=== PATIENT | male | born 1995 | race Caucasian/White ===

== ENCOUNTER 2017-04-15 13:06 | Emergency (ER) | payer OTHER ==
[~2017-04-15] VITALS: Ht 188 cm; Wt 68.0 kg
[2017-04-15 13:54] LABS: ABSOLUTE BASOPHIL COUNT 0 /CUMM (0.0-0.2); ABSOLUTE EOSINOPHIL COUNT 0.1 /CUMM (0.0-0.7); ABSOLUTE GRANULOCYTE CT 3.3 /CUMM (1.4-6.5); ABSOLUTE LYMPH COUNT 2.4 /CUMM (1.2-3.4); ABSOLUTE MONOCYTE COUNT 0.7 /CUMM (0.10-0.60); BASOPHIL % 0.7 % (0.0-2.0); EOSINOPHIL % 1.4 % (0-5); GRANULOCYTE % 50.4 % (42.2-75.2); HEMATOCRIT 46.2 % (42-52); MEAN CORPUSCULAR HGB 28.5 PG (27.0-31.0); MEAN CORPUSCULAR HGB CONC 33.1 G/DL (33.0-37.0); MEAN CORPUSCULAR VOLUME 86.1 FL (80.0-94.0); MEAN PLATELET VOLUME 7.1 FL (7.4-10.4); PLATELET COUNT 280 /CUMM (130-400); RED BLOOD CELL CT 5.36 /CUMM (4.70-6.10); WHITE BLOOD CELL COUNT 6.5 /CUMM (4.8-10.8)
--- NOTE | 2017-04-15 15:13 | ED GENERAL ADULT ---
See Addendum History of Present Illness General Chief Complaint: Nausea, Vomiting, Diarrhea Stated Complaint: N/V/D, ABDOMINAL PAIN X 4 DAYS Source: patient Exam Limitations: no limitations Vital Signs & Intake/Output Vital Signs & Intake/Output Vital Signs Date Time Temp Pulse Resp B/P B/P Pulse O2 O2 Flow FiO2 Mean Ox Delivery Rate 04/15 1524 97.8 78 19 113/73 99 Room Air 04/15 1310 96.2 84 20 124/80 100 Room Air Allergies Coded Allergies: No Known Allergies (04/15/17) Triage Note: PT TO ED C/O ABD PAIN AND VOMITING X 4 DAYS STATES HE ONLY VOMITS ONCE IN THE AM UPON WAKING. DENIES DIARRHEA. DENIES S/S. Triage Nurses Notes Reviewed? yes HPI: Mr. Hong is a 22-year-old male with no significant past medical history who presents to the ED with nausea and vomiting for 5 days. Patient reports last Thursday he began to have abdominal cramping associated with vomiting. He doesn't recall what his vomit looks like. He also reports a fever of T101. He reports he smoked a flavored e-cigarette last without symptoms. His last bowel movement was this morning. On Thursday patient reports he went for his routine health visit and was told he had proteinuria. He has not received his seasonal flu vaccination. He denies chills, diarrhea, urinary symptoms, sick contacts, recent travel. Past History Travel History Traveled to [place] past 21 day No Medical History Any Pertinent Medical History? none Surgical History Surgical History: non-contributory Psychosocial History What is your primary language Nepalese Tobacco Use: Never used ETOH Use: denies use Illicit Drug Use: marijuana Family History Hx Contributory? Yes Review of Systems Review of Systems Constitutional: Reports: see HPI. Physical Exam Physical Exam General Appearance: well developed/nourished, no apparent distress, alert, awake , comfortable Respiratory: normal breath sounds, lungs clear Cardiovascular: regular rate/rhythm Gastrointestinal: normal bowel sounds, soft, non-tender, no organomegaly Extremities: no edema Core Measures ACS in differential dx? No CVA/TIA Diagnosis: No Sepsis Present: No Sepsis Focused Exam Completed? No Progress Differential Diagnoses I considered the following diagnoses in my evaluation of the patient: [Drug abuse, viral syndrome, acute gastroenteritis, acute pancreatitis, cholelithiasis ] Plan of Care: Orders Procedure Date/time Status URINE DRUGS OF ABUSE 04/15 1514 Active URINALYSIS 04/15 1506 Active LIPASE 04/15 1309 Complete C-REACTIVE PROTEIN 04/15 1309 Complete COMPREHENSIVE METABOLIC PANEL 04/15 1309 Complete CBC WITHOUT DIFFERENTIAL 04/15 1309 Complete Laboratory Tests 04/15/17 1529: Methadone Screen Pending, Barbiturate Screen Pending, Ur Phencyclidine Scrn Pending, Amphetamines Screen Pending, U Benzodiazepines Scrn Pending, Urine Cocaine Screen Pending, Urine Cannabis Screen Pending, Urine Color Pending, Urine Clarity Pending, Urine pH Pending, Ur Specific [place] Pending, Urine Protein Pending, Urine Ketones Pending, Urine Nitrite Pending, Urine Bilirubin Pending, Urine Urobilinogen Pending, Ur Leukocyte Esterase Pending, Ur Microscopic Pending, Urine Hemoglobin Pending, Urine Glucose Pending 04/15/17 1346: Anion Gap 11, Estimated GFR > 60, BUN/Creatinine Ratio 12.2, Glucose 102 H, Calcium 9.4, Total Bilirubin 0.2, AST 18, ALT 24, Alkaline Phosphatase 57, C- Reactive Prot, Quant < 0.5, Total Protein 7.0, Albumin 4.2, Globulin 2.8, Albumin/Globulin Ratio 1.5, Lipase 53, CBC w Diff NO MAN DIFF REQ, RBC 5.36, MCV 86.1, MCH 28.5, MCHC 33.1, RDW 13.0, MPV 7.1 L, Gran % 50.4, Lymphocytes % 37.3 , Monocytes % 10.2 H, Eosinophils % 1.4, Basophils % 0.7, Absolute Granulocytes 3.3, Absolute Lymphocytes 2.4, Absolute Monocytes 0.7 H, Absolute Eosinophils 0.1, Absolute Basophils 0 Initial ED EKG: none Departure Departure Disposition: HOME OR SELF CARE Condition: Stable Clinical Impression Primary Impression: Acute viral syndrome Referrals: Unknown (PCP/Family) Additional Instructions: If symptoms persist do not hesitate to return to the ED. Keep hydrated and get adequate rest. Resume diet and advance as tolerated. Departure Forms: Customer Survey General Discharge Information Critical Care Note Critical Care Note Critical Care Time: 30-74 min
[2017-04-15 15:24] VITALS: BP 113/73
== END 2017-04-15 16:03 ==
LOC: ERH 13:06
PROVIDERS: Physician Assistant Medical
DX: B34.9 Viral infection, unspecified (principal)
CPT/HCPCS: 80307; 81001